=== PATIENT | female | born 1955 | race Caucasian/White ===

== ENCOUNTER 2021-03-23 14:31 | Inpatient (IN) ==
[2021-03-23] MEDS ORDERED: Isovue-370 500 ML BOTTLE IVP ONE (14:50)
[2021-03-23 15:03] LABS: Hematocrit 45.7 % (35.3-44.9); Hemoglobin 14.9 g/dL (11.5-15.4); Mean Corpuscular HGB Conc 32.6 g/dL (31.6-35.5); Mean Corpuscular Hemoglobin 30.1 pg (28.0-33.3); Mean Corpuscular Volume 92.3 fL (83.0-100.0); Mean Platelet Volume 11.1 fL (9.4-12.4); Platelet Count 165 K/mcL (140-400); Red Blood Count 4.95 M/mcL (3.82-4.97); Red Cell Distribution Width 13.8 % (11.5-14.5)
[2021-03-23 15:10] LABS: Prothrombin Time 11.3 Seconds (9.4-12.1)
[2021-03-23 15:12] LABS: Activated Partial Thrombo Time 35.7 Seconds (26.0-36.0)
[2021-03-23 15:25] LABS: BUN/Creatinine Ratio 23 (6-26); Blood Urea Nitrogen 19 mg/dL (8-23); Calcium 8.6 mg/dL (8.6-10.3); Carbon Dioxide 30 mEq/L (23-29); Chloride 104 mEq/L (98-107); Glucose 144 mg/dL (70-105); Osmolality,Calculated 293 (280-300); Potassium 3.9 mEq/L (3.5-5.1); Sodium 139 mEq/L (136-145); eGFR For African Americans > 60 (> 60); eGFR For Non-African Americans > 60 (> 60)
[2021-03-23 15:33] LABS: Troponin I < 0.03 ng/mL (< 0.04)
[2021-03-23 15:42] LABS: Bilirubin,Urine Negative (Negative); Blood,Urine Negative (Negative); Clarity,Urine Clear (Clear); Color,Urine Light-Yellow (Yellow); Glucose,Urine (UA) Normal (Normal); Ketones,Urine Negative (Negative); Leukocyte Esterase,Urine Negative (Negative); Nitrite,Urine Negative (Negative); Protein,Urine Negative (Neg-Trace); Urobilinogen,Urine Normal (Normal)
[2021-03-23] MEDS ORDERED: Aspirin 81 MG TAB.CHEW PO STA (17:43)
[2021-03-23] MEDS ORDERED: Perflutren Lipid Microsphere 1.3 ML in 0.9 % Sodium Chloride 8.7 ML IVP PRN (18:20)
[2021-03-23 19:09] LABS: Ethanol < 10 mg/dL (Less than 10)
[2021-03-23] MEDS: *HR* Heparin 5,000 UNIT/ML VIAL SQ SCH (21:16)
[2021-03-24] MEDS: *HR* Heparin 5,000 UNIT/ML VIAL SQ SCH ×2 (07:00→17:22)
[2021-03-24 07:59] LABS: INR 1.1; Prothrombin Time 12.2 Seconds (9.4-12.1)
[2021-03-24 08:15] LABS: Chol/HDL Ratio 5.6 (0-4.9)
[2021-03-24] MEDS: Aspirin Enteric Coated 81 MG Tablet PO SCH (08:56)
[2021-03-24 09:19] LABS: Estimated Average Glucose 123 mg/dl; Hemoglobin A1C 5.9 %
[2021-03-24 09:28] LABS: Amphetamine Screen,Urine Negative ng/mL (Cutoff=1000); Barbiturate Screen,Urine Negative ng/mL (Cutoff=200); Benzodiazepines Screen,Urine Negative ng/mL (Cutoff=200); Cannabinoid Screen,Urine Positive ng/mL (Cutoff = 50); Cocaine Screen,Urine Negative ng/mL (Cutoff= 300); Opiate Screen,Urine Positive ng/mL (Cutoff=300); Phencyclidine Screen,Urine Negative ng/mL (Cutoff=25)
[2021-03-24] MEDS: Nicotine 2 MG GUM BC PRN ×2 (15:14→21:18)
[2021-03-24] MEDS: Loratadine 10 MG TABLET PO SCH (17:22)
[2021-03-24] MEDS ORDERED: Acetaminophen 325 MG TABLET PO ONE (20:14)
[2021-03-25] MEDS: *HR* Heparin 5,000 UNIT/ML VIAL SQ SCH ×2 (05:40→18:39)
[2021-03-25 06:09] LABS: Chol/HDL Ratio 5.8 (0-4.9)
[2021-03-25] MEDS ORDERED: lisinopriL 10 MG TABLET PO SCH (09:00)
[2021-03-25 10:11] LABS: BUN/Creatinine Ratio 25 (6-26); Blood Urea Nitrogen 18 mg/dL (8-23); Carbon Dioxide 20 mEq/L (23-29); Chloride 105 mEq/L (98-107); Glucose 109 mg/dL (70-105); Magnesium 2.1 mg/dL (1.6-2.6); Osmolality,Calculated 286 (280-300); Phosphorous 3.3 mg/dL (2.7-4.5); Potassium 4.4 mEq/L (3.5-5.1); Sodium 137 mEq/L (136-145); Thyroid Stimulating Hormone 2.622 mcIU/mL (0.340-5.600); eGFR For African Americans > 60 (> 60); eGFR For Non-African Americans > 60 (> 60)
[2021-03-25 10:30] LABS: Hematocrit 49.6 % (35.3-44.9); Hemoglobin 16.2 g/dL (11.5-15.4); Mean Corpuscular HGB Conc 32.7 g/dL (31.6-35.5); Mean Corpuscular Hemoglobin 29.7 pg (28.0-33.3); Mean Platelet Volume 11.5 fL (9.4-12.4); Platelet Count 172 K/mcL (140-400); Red Blood Count 5.45 M/mcL (3.82-4.97); Red Cell Distribution Width 13.8 % (11.5-14.5); White Blood Count 11.4 K/mcL (4.3-11.1)
[2021-03-25] MEDS ORDERED: 0.9 % Sodium Chloride 500 ML IVC ONE (10:39)
[2021-03-25] MEDS ORDERED: Lidocaine Viscous Oral Soln 15 ML SOLUTION MM PRN (10:39)
[2021-03-25] MEDS: *HR* FentaNYL (PF) 100 MCG/2 ML VIAL IVP PRN ×3 (11:15→11:25)
[2021-03-25] MEDS: *HR* Midazolam HCl 5 MG/5 ML VIAL IVP PRN ×3 (11:15→11:25)
[2021-03-25] MEDS: PARoxetine 20 MG TABLET PO SCH (12:34)
[2021-03-25] MEDS: Loratadine 10 MG TABLET PO SCH (12:34)
[2021-03-25] MEDS: Aspirin Enteric Coated 81 MG Tablet PO SCH (12:34)
[2021-03-25] MEDS: Nicotine 21 MG PATCH.TD24 TD SCH (12:40)
[2021-03-25] MEDS ORDERED: Nicotine 2 MG GUM BC PRN (12:44)
[2021-03-25] MEDS ORDERED: Ondansetron 4 MG/2 ML VIAL IVP ONE (14:07)
[2021-03-25] MEDS: Pregabalin 75 MG CAPSULE PO SCH (22:09)
[2021-03-26] MEDS ORDERED: Ondansetron 4 MG/2 ML VIAL IVP ONE (03:35)
[2021-03-26] MEDS: *HR* Heparin 5,000 UNIT/ML VIAL SQ SCH (06:34)
[2021-03-26] MEDS: Pregabalin 75 MG CAPSULE PO SCH (08:39)
[2021-03-26] MEDS: Aspirin Enteric Coated 81 MG Tablet PO SCH (08:39)
[2021-03-26] MEDS: PARoxetine 20 MG TABLET PO SCH (08:39)
[2021-03-26] MEDS ORDERED: Acetaminophen 325 MG TABLET PO PRN (08:45)
[2021-03-26] MEDS: Nicotine 21 MG PATCH.TD24 TD SCH (08:49)
[2021-03-26] MEDS: Loratadine 10 MG TABLET PO SCH (08:49)
[2021-03-26] MEDS ORDERED: lisinopriL 20 MG TABLET PO SCH (09:00)
[2021-03-26] MEDS ORDERED: Apixaban 5 MG TABLET PO SCH (09:00)
[2021-03-26 10:19] VITALS: BP 136/85; PULSE 84; TEMP 97.8; O2SAT 95
== END 2021-03-26 12:50 | disposition home or self-care (01) | DRG 45 ==
LOC: EMEROOARM 14:31 → 3BNU 14:31 → SUATTDRO 18:02 → 3BNU 18:57 → 3NENU 20:19 → SUATTDRO 03-25 17:18
PROVIDERS: ADMIT Internal Medicine; ATTEND Internal Medicine